=== PATIENT | male | born 1965 ===

== ENCOUNTER 2016-12-23 09:53 | Emergency (ER) | payer OTHER ==
[2016-12-23] MEDS ORDERED: ACETAMINOPHEN 500 MG TABLET ONE (10:20)
[2016-12-23] MEDS ORDERED: IBUPROFEN 600 MG TABLET ONE (10:20)
--- NOTE | 2016-12-23 11:36 | RAD ---
Exam: Two-view chest COMPARISON: None INDICATION: Fever, cough, recent foot surgery. FINDINGS: PA and lateral views of the chest were obtained. Cardiac silhouette is within normal limits. Lungs are normally inflated. There is is a small somewhat rounded focus of airspace disease within the left upper lobe. Lung joyce are otherwise clear and symmetric. There is no pleural effusion. Bones of the chest wall within normal limits. IMPRESSION: Small focus of airspace disease within the left upper lobe, compatible pneumonia in the correct clinical setting. Follow-up radiograph is recommended to ensure resolution.
== END 2016-12-23 12:12 | disposition home or self-care (01) ==
LOC: ED 09:53
DX: J18.9 Pneumonia, unspecified organism (principal); I10 Essential (primary) hypertension
CPT/HCPCS: 71020; 87804; 99283 ×2; A9270 ×2